=== PATIENT | female | born 1950 | race Caucasian/White ===

== ENCOUNTER → 2018-01-20 | Outpatient (CLI) | payer MEDICARE, OTHER ==
[~2018-01-20] MED LIST: CALC-682 PO; CLO5 PO; FISH OIL1 CAP PO; GLUC500T13 PO; IBUP-1482 PO; LEVO50 PO
--- NOTE | 2018-01-23 17:24 | RADIOLOGY IMAGING REPORT ---
FACILITY: [facility] - [place] PATIENT NAME: TYREE HEAD : [id number] MR: [id number] V: [id number] EXAM DATE: [id number] ORDERING PHYSICIAN: DALE CONWAY TECHNOLOGIST: Janette Solares PROCEDURE:BILATERAL DIGITAL SCREENING MAMMOGRAM WITH CAD ASSISTED INTERPRETATION & 3D TOMOSYNTHESIS COMPARISON:Prior mammograms 06/04/16, 04/02/14, 01/19/13, 11/04/11. INDICATIONS:SCREENING FINDINGS: Moderately dense fibroglandular tissue is seen throughout the breasts. In the medial portion of the Right breast on the Right CC view there is a small nodular density not appreciated on the prior study. This is best identified on Tomographic image 24. Spot compression view is recommended. The remainder of the parenchymal pattern has remained stable. DIAGNOSTIC CATEGORY 0--INCOMPLETE: NEED ADDITIONAL IMAGING EVALUATION. RECOMMENDATIONS: ADDITIONAL MAMMOGRAPHIC VIEWS REQUIRED: RIGHT BREAST. IMPRESSION: BIRADS 0: Incomplete. Additional view of the Right breast recommended as described. Dictated by: Liz Stout M.D. on 01/23/2018 at 10:05 Transcribed by: LUIS on 01/23/2018 at 10:56 Approved by: Liz Stout M.D. on 01/23/2018 at 17:23 [facility]
== END ==
LOC: MAMO 02:51
PROVIDERS: ATTEND Student in an Organized Health Care Education/Training Program
DX: Z12.31 Encounter for screening mammogram for malignant neoplasm of breast (principal); R92.8 Other abnormal and inconclusive findings on diagnostic imaging of breast
CPT/HCPCS: 77063; 77067

== ENCOUNTER → 2018-02-08 | Outpatient (CLI) | payer MEDICARE, OTHER ==
--- NOTE | 2018-02-09 15:03 | RADIOLOGY IMAGING REPORT ---
FACILITY: [facility] - [place] PATIENT NAME: TYREE HEAD : [id number] MR: [id number] V: [id number] EXAM DATE: [id number] ORDERING PHYSICIAN: DALE CONWAY TECHNOLOGIST: Nathalie Norton PROCEDURE:RIGHT DIGITAL DIAGNOSTIC MAMMOGRAM WITH 3D TOMOSYNTHESIS COMPARISON:Prior mammograms 01/20/18, 06/04/16, 04/02/14, 01/19/13, 11/04/11. INDICATIONS:FURTHER EVAL FINDINGS: The patient returns for Spot compression view in the Right CC projection with 3D breast Tomosynthesis. The small focal area of increased density in the medial portion of the Right breast on the recent Right CC view appeared freely compressible and apparently represented summation shadow. There is no demonstration of malignant appearing mass, malignant appearing calcifications in the Right breast. DIAGNOSTIC CATEGORY 1--NEGATIVE. RECOMMENDATIONS: ROUTINE MAMMOGRAM AND CLINICAL EVALUATION. IMPRESSION: BIRADS 1: Negative. No significant abnormality is seen in the Right breast. Dictated by: Liz Stout M.D. on 02/08/2018 at 11:21 Transcribed by: LUIS on 02/08/2018 at 11:36 Approved by: Liz Stout M.D. on 02/09/2018 at 15:01 [facility]
== END ==
LOC: MAMO 02:12
PROVIDERS: ATTEND Student in an Organized Health Care Education/Training Program
DX: R92.8 Other abnormal and inconclusive findings on diagnostic imaging of breast (principal)
CPT/HCPCS: 77061; 77065

== ENCOUNTER → 2018-10-27 | Outpatient (CLI) | payer MEDICARE, OTHER ==
--- NOTE | 2018-10-27 16:03 | RADIOLOGY IMAGING REPORT ---
FACILITY: [facility] PATIENT NAME: Sabine Travis : 1950 MR: [id number] V: [id number] EXAM DATE: ORDERING PHYSICIAN: SATISH ZAYAS TECHNOLOGIST: Location: [facility] [place] Patient: Sabine Travis : 1950 Visit/Account:[id number] Date of Sevice: 10/27/2018 DEXA Scan Clinical history: Postmenopausal osteoporosis. Comparison: DEXA scan from 04/01/2000. LUMBAR SPINE: The bone mineral density (BMD) measured from L1-L4 correlates with a Z-score of -0.9 and a T-score of -2.9 which is osteoporosis as defined by the World Health Organization. The corresponding risk of f racture in the lumbar spine is 68 times increased compared with a young adult reference population. This value has decreased by 17.2 % since the prior study. More than 5% change is considered signific ant. HIP: Bone mineral density (BMD) measured in the LEFT total hip region correlates with a Z-score -0.2 and a T-score of -1.9 which is osteopenia as defined by the World Health Organization. The corresponding risk of fracture in the hip is 3-4 times increased compared to a young adult reference population. Th is value has decrease by 15.3 % since the prior study. More than 5% change is considered significant . T score left femoral neck -2.2 Bone mineral density (BMD) measured in the Femoral Neck region measures 0.738 g/cm?. IMPRESSION: 1. Lumbar spine: Osteoporosis. There has been 17.2% decrease in the bone mineral density since the previous exam. 2. Left Total Hip: Osteopenia. There has been 15.3% decrease in the bone mineral density since the previous exam. 3. Femoral Neck: Bone Mineral Density is 0.738 g/cm? The next DEXA scan of this patient should include the following sites: L1-L4 and the left hip. FRAX? WHO Fracture Risk Assessment Tool link: <http://www.shef.ac.uk/FRAX/tool.jsp?locationValue=9> PLEASE NOTE: 1) The World Health Organization defines low BMD as follows: T-score Normal > -1 Osteopenia < -1 and > -2.5 Osteoporosis < -2.5 without fractures Established osteoporosis < -2.5 with fractures 2) In general, you may wish to consider: Diagnosis Treatment Follow-up DEXA Normal BMD Prevention 2-3 years Osteopenia Prevention/therapy 1-2 years Osteoporosis Therapy Yearly 3) Fracture risk estimated from the T-score is more accurate for vertebral fractures (often spontane ous) than for hip fractures. Report Dictated By: Liz Stout MD at 10/27/2018 3:57 PM Report E-Signed By: Liz Stout MD at 10/27/2018 3:58 PM WSN:[email or web address]
== END ==
LOC: RAD 07:31
PROVIDERS: ATTEND Nurse Practitioner Family
DX: Z13.820 Encounter for screening for osteoporosis (principal); M81.0 Age-related osteoporosis without current pathological fracture; M85.88 Other specified disorders of bone density and structure, other site
CPT/HCPCS: 77080